=== PATIENT | female | born 1955 | race Caucasian/White ===

== ENCOUNTER → 2019-07-02 | Outpatient (CLI) | payer OTHER ==
--- NOTE | 2019-07-02 12:14 | Diagnostic Imaging Report ---
CLINICAL HISTORY: Acute low back pain with right-sided radiculopathy. COMPARISON: None. TECHNIQUE: Three views of the lumbar spine. FINDINGS: There is no acute fracture or dislocation of the lumbar spine. Vertebral body heights are maintained. Postsurgical changes of posterior fusion are seen at L5-S1 with interbody disc spacer at the L5-S1 level. No evidence of hardware fracture or loosening. There is grade II-III anterolisthesis of L5 on S1. Degenerative changes are present in the lumbar spine with marginal osteophytes and facet hypertrophy. Included soft tissues are unremarkable. IMPRESSION: 1. No acute fracture or dislocation in the lumbar spine. 2. Postsurgical changes of posterior fusion at L5-S1. There is grade II-III anterolisthesis of L5 on S1. Dictated by: Dictated on workstation # [id number]
--- NOTE | 2019-07-02 21:36 | Diagnostic Imaging Report ---
INDICATION: Low back pain radiating into the right hip. TIME OF EXAM: 9:46 a.m. EXAMINATION: An AP view of the pelvis was obtained. FINDINGS: Femoral acetabular alignment is normal, bilaterally. Joint spaces are well maintained. Both femoral heads and necks are intact. SI joints and symphysis are non-widened. There are postop changes in the lower lumbar spine with vertical stabilization rods and pedicle screws as well as intervertebral devices. IMPRESSION: No acute bony abnormality is detected. Dictated by: Dictated on workstation # [id number]
== END ==
LOC: RAD FS 09:39
PROVIDERS: ATTEND Nurse Practitioner Family
DX: M47.817 Spondylosis without myelopathy or radiculopathy, lumbosacral region (principal); M54.41 Lumbago with sciatica, right side; Z98.1 Arthrodesis status; Z98.890 Other specified postprocedural states
CPT/HCPCS: 72100; 72170

== ENCOUNTER 2022-03-27 05:38 | Outpatient (CLI) | payer MEDICARE, OTHER ==
[~2022-03-27] VITALS: Ht 157.5 cm; Wt 65.9 kg
[2022-03-27] MEDS ORDERED: LISI10TA25 PO (08:52)
[2022-03-27] MEDS ORDERED: LOVA20TA2 PO (08:52)
[2022-03-27] MEDS ORDERED: IBAN150T21 PO (08:52)
[2022-03-27] MEDS ORDERED: CALC-1077 PO (08:52)
[2022-03-27] MEDS ORDERED: NF-VITD400 PO (08:52)
[2022-03-27] MEDS ORDERED: ASCO-262 PO (08:52)
[2022-03-27] MEDS ORDERED: ASPI-999 PO (08:52)
[2022-03-27] MEDS ORDERED: DICL75TA2 PO (08:52)
[2022-03-27] MEDS ORDERED: ZINC50TA11 PO (08:52)
== END 2022-03-27 08:53 | disposition home or self-care (01) ==
LOC: PREOP 05:38
PROVIDERS: ATTEND Surgery
DX: Z01.818 Encounter for other preprocedural examination (principal)

== ENCOUNTER 2022-04-03 09:14 | Day surgery (SDC) | payer MEDICARE, OTHER ==
--- NOTE | 2022-03-27 10:30 | HISTORY AND PHYSICAL ---
DATE OF SERVICE: PROCEDURE DATE: 04/03/2022. ATTENDING PRIMARY CARE PHYSICIAN: Pasquale Eng DO HISTORY OF PRESENT ILLNESS: The patient is a 66-year-old female who was referred over to us in need of a screening colonoscopy. She reports her last colonoscopy was in 2004, which she reports was normal. Since that time, she denies any blood in her stool as well as no family history of any colon cancer. She also denies any diarrhea, constipation or any abdominal pain. PAST MEDICAL HISTORY: Arthritis, hypertension, osteoporosis, hypercholesterolemia. PAST SURGICAL HISTORY: Tonsillectomy in 1962, section x2 in 1974 and 1978, left knee arthroscopy in 1987, umbilical hernia repair in 1997, benign mole removed from abdomen in 2002, left foot surgery in 2010, L5 to S1 back surgery 2008, right total knee replacement in 2020. ALLERGIES: No known drug allergies. MEDICATIONS: Aspirin 81 mg daily, lovastatin 20 mg daily, lisinopril 10 mg daily, diclofenac sodium 75 mg b.i.d., ibandronate sodium 150 mg monthly, vitamin D, vitamin C, zinc, Citracal. SOCIAL HISTORY: Negative for tobacco smoke, negative alcohol. FAMILY HISTORY: Maternal grandmother, ovarian cancer. VITAL SIGNS: Blood pressure is 110/70. Current weight is 145.2 pounds at 5 feet 2 inches. REVIEW OF SYSTEMS: This is a well-nourished female in no acute distress. She is not experiencing any shortness of breath or difficulty breathing. No chest pain, palpitations or diaphoresis. No nausea, vomiting or abdominal pain. No diarrhea or constipation. No red blood per rectum. No dark tarry stools. No fever or chills. No recent inadvertent weight loss. All other review of systems negative. PHYSICAL EXAMINATION: CHEST: Clear. Good breath sounds bilaterally. HEART: Regular, no murmurs. EXTREMITIES: No lower extremity edema. Negative Homans sign. HEENT: No scleral icterus. NECK: No cervical lymphadenopathy. ABDOMEN: Soft, nontender, nondistended. SKIN: Warm, dry and pink. NEUROLOGIC: Awake, alert and oriented x3. ASSESSMENT AND PLAN: This is a 66-year-old female who is in need of a screening colonoscopy. At this time, we will proceed with scheduling her for a screening colonoscopy. Job ID: [id number] DocumentID: [id number] Dictated Date: 03/27/2022 09:37:39 Worksite Wellness Practitioner Date: 03/27/2022 10:29:49 Dictated By: PITA KUHN APRN [email or web address]
[~2022-04-03] VITALS: Ht 158 cm; Wt 65.9 kg
[~2022-04-03 09:14] MED LIST: ASCO-262 PO; ASPI-999 PO; CALC-1077 PO; DICL75TA2 PO; IBAN150T21 PO; LISI10TA25 PO; LOVA20TA2 PO; NF-VITD400 PO; ZINC50TA11 PO
[2022-04-03] MEDS ORDERED: LACTATED RINGERS 1,000 ML IV STA (09:23)
[2022-04-03] MEDS ORDERED: LIDOCAINE JELLY 2% 6 ML SYRINGE MM PRN (09:30)
[2022-04-03 09:32] VITALS: BP 139/73
[2022-04-03] MEDS ORDERED: PROPOFOL INJECTION 50 ML IV ONE (10:08)
[2022-04-03] MEDS ORDERED: ONDANSETRON 4 MG (ZOFRAN) ORAL DISSOLVE TAB PO PRN (10:15)
[2022-04-03] MEDS ORDERED: ONDANSETRON 4 MG/2 ML (SDV) Z0FRAN IVP PRN (10:15)
--- NOTE | 2022-04-03 10:15 | Progress Note-Pre Operative ---
Pre-Operative Progress Note H&P Reviewed The H&P was reviewed, patient examined and no changes noted. Date Seen by Provider: Apr 03, 2022 Time Seen by Provider: :30 Date H&P Reviewed: Apr 03, 2022 Time H&P Reviewed: :30 Pre-Operative Diagnosis: screening o RICARDO HANCOCK MD Apr 03, 2022 10:15
--- NOTE | 2022-04-03 10:16 | Discharge Inst-Surgical ---
D/C Lap Instructions-SANTI Follow Up Activity as tolerated High Fiber Diet 25g or more per day Avoid Alcohol, Caffeine, Spicy Stephens and Acid foods. Drink 64 fluid oz or more of fluids per day. Symptoms to Report: Fever over 101 degree F, Nausea/Vomiting If any problems/questions: Contact your physician or go to Emergency Room RICARDO HANCOCK MD Apr 03, 2022 10:16
[2022-04-03 10:59] VITALS: BP 119/58
[2022-04-03 11:05] VITALS: BP 117/56
--- NOTE | 2022-04-03 11:08 | Progress Note-Post Operative ---
Post-Operative Progess Note Surgeon (s)/Developmental Psychologist (s) Surgeon RICARDO HANCOCK MD Developmental Psychologist: none Pre-Operative Diagnosis screening colo Post-Operative Diagnosis mild chronic stage 2 ext and int hemorrhoids. Procedure & Operative Findings Date of Procedure 04/03/22 Procedure Performed/Findings colonoscopy Anesthesia Type mac Estimated Blood Loss Estimated blood loss (mL): minimal Specimens/Packing Specimens Removed none RICARDO HANCOCK MD Apr 03, 2022 11:08
[2022-04-03 11:25] VITALS: BP 117/50
--- NOTE | 2022-04-03 12:52 | Anesthesia-General Post-Op ---
MAC Patient Condition Mental Status/LOC: Same as Preop Cardiovascular: Satisfactory Nausea/Vomiting: Absent Respiratory: Satisfactory Pain: Controlled Complications: Absent Post Op Complications Complications None Follow Up Care/Instructions Patient Instructions None needed. Anesthesiology Discharge Order Discharge Order Patient is doing well, no complaints, stable vital signs, no apparent adverse anesthesia problems. No complications reported per nursing. HEATHER BOLAND CRNA Apr 03, 2022 12:52
--- NOTE | 2022-04-03 17:08 | OPERATIVE REPORT ---
DATE OF SERVICE: 04/03/2022 ATTENDING PRIMARY CARE PHYSICIAN: Dr. Pasquale Eng. PREOPERATIVE DIAGNOSIS: Screening colonoscopy. POSTOPERATIVE DIAGNOSIS: Mild chronic stage II external and internal hemorrhoids. PROCEDURE: Colonoscopy. SURGEON: Ricardo Hancock MD ANESTHESIA: Monitored anesthesia care. ESTIMATED BLOOD LOSS: Minimal. FINDINGS: Mild chronic stage II external and internal hemorrhoids. DISPOSITION: The patient tolerated the procedure well. INDICATIONS: The patient is a 66-year-old female referred over to us for screening colonoscopy. Her last colonoscopy was approximately 17 years ago, and she believes that to be normal. She is otherwise doing well, does not report any major issues with diarrhea nor constipation as well as no red blood per rectum nor any dark tarry stools. DESCRIPTION OF PROCEDURE: The patient was brought to the endoscopy suite, laid in left lateral decubitus position. After adequate IV pain and sedative medications and monitored anesthesia care, digital rectal examination was performed, which revealed chronic stage II external and internal hemorrhoids, not actively edematous nor inflamed and no bleeding. Normal sphincter tone was felt and there were no palpable masses. The endoscope was then intubated to the anus and rectum gently insufflated. The endoscope was then advanced to the valves of [place] of the rectum with no polyps or any neoplasms identified. Throughout the sigmoid colon, no diverticulosis identified. The endoscope was then advanced into the descending, transverse and ascending colon to the cecum, which were normal. There were no polyps or any neoplasms identified throughout the colon or rectum. The endoscope was then slowly withdrawn while taking a second look and suctioning of residual air with no additional findings. The patient tolerated the procedure well. We will recommend medical management with a high fiber diet with fiber supplement, which should equal or exceed 25 grams daily as well as significant amounts of water to promote soft stools on a daily basis. If she is asymptomatic, she does not need another colonoscopy for another 10 years. Job ID: [id number] DocumentID: [id number] Dictated Date: 04/03/2022 10:58:12 Director Of Sales And Marketing Date: 04/03/2022 17:08:16 Dictated By: RICARDO HANCOCK MD
== END 2022-04-03 11:30 | disposition home or self-care (01) ==
LOC: ENDO 09:14
PROVIDERS: ATTEND Surgery
DX: Z12.11 Encounter for screening for malignant neoplasm of colon (principal); K64.1 Second degree hemorrhoids; K64.4 Residual hemorrhoidal skin tags; Z79.82 Long term (current) use of aspirin